=== PATIENT | male | born 1950 | race African-American/Black ===

== ENCOUNTER 2022-06-10 10:34 | Inpatient (IN) ==
[2022-06-10 15:01] LABS: Basophils % 0.2 % (0.0-0.8); Eosinophils # 0.1 10*3/uL (0.0-0.87); Eosinophils % 2.2 % (0.00-10.9); Hematocrit 22.1 VOL% (42.0-52.0); Hemoglobin 6.7 GM/DL (14.0-18.0); Immature Granulocytes % 0.5 %; Immature Granulocytes Absolute 0.03 #; Lymphocytes # 1.7 10*3/uL (1.4-4.0); Lymphocytes % 30.6 % (21.2-54.2); Mean Corpuscular HGB Conc 30.3 GM/DL (32-36); Mean Corpuscular Volume 97.4 FL (87-102); Mean Platelet Volume 9.5 FL (9.6-12.0); Monocytes # 0.7 10*3/uL (0.11-0.8); Monocytes % 13.4 % (1.7-12.7); Neutrophils % 53.1 % (38.7-73.9); Platelet Count 183 T/CUMM (130-400); Red Blood Count 2.27 MC/CUMM (3.8-5.5); Red Cell Distribution Width 16.9 % (9.3-17.3); White Blood Count 5.5 T/CUMM (4-12)
[2022-06-10 15:23] LABS: Alanine Aminotransferase 25 U/L (16-61); Albumin 3.1 G/DL (3.4-5.0); Alkaline Phosphatase 66 U/L (45-117); Aspartate Amino Transferase 32 U/L (0-37); Bilirubin,Total < 0.39 MG/DL (0.20-1.00); Blood Urea Nitrogen 14 MG/DL (7-18); Calcium 8.8 MG/DL (8.5-10.1); Carbon Dioxide 27 MMOL/L (21-32); Chloride 107 MMOL/L (98-107); Glucose 80 MG/DL (74-106); Osmolality,Calculated 272.8 MOS/KG (273-304); Potassium 3.7 MMOL/L (3.5-5.1); Sodium 137 MMOL/L (136-145); Total Protein 11.8 G/DL (6.4-8.2)
[2022-06-10] MEDS ORDERED: PANTOPRAZOLE INJ 80 MG in SODIUM CHLORIDE 0.9% 100 ML IV ONE ×2 (16:03→16:30)
[2022-06-10 16:18] LABS: INR 1.2; PT Patient Result 13.3 SECS (10.1-12.1); Partial Thromboplastin Time 25.6 SECS (23.7-32.9)
[2022-06-10] MEDS ORDERED: PANTOPRAZOLE INJ 200 MG in SODIUM CHLORIDE 0.9% 250 ML IV SCH (16:30)
[2022-06-10] MEDS ORDERED: SODIUM CHLORIDE 0.9% 1,000 ML IV PRN (16:49)
[2022-06-10] MEDS ORDERED: ONDANSETRON 4 MG/2 ML VIAL IV PRN (17:41)
[2022-06-10] MEDS ORDERED: ACETAMINOPHEN 325 MG TABLET PO PRN (17:41)
[2022-06-10] MEDS ORDERED: hydrALAZINE 20 MG/1 ML VIAL IV PRN (17:41)
[2022-06-10 19:41] LABS: % Iron Saturation 11.5 % (18-50); Ferritin 78.4 ng/mL (26-388)
[2022-06-10 19:51] LABS: Folate > 24.00 NG/ML (5.38-24.0); Vitamin B12 798 PG/ML (211-911)
[2022-06-10 20:56] LABS: Basophils % 0.2 % (0.0-0.8); Eosinophils # 0.2 10*3/uL (0.0-0.87); Eosinophils % 3.1 % (0.00-10.9); Hematocrit 19.2 VOL% (42.0-52.0); Immature Granulocytes % 0.7 %; Immature Granulocytes Absolute 0.04 #; Lymphocytes # 1.9 10*3/uL (1.4-4.0); Lymphocytes % 34.6 % (21.2-54.2); Mean Corpuscular HGB Conc 30.2 GM/DL (32-36); Mean Corpuscular Volume 98.5 FL (87-102); Mean Platelet Volume 9.5 FL (9.6-12.0); Monocytes # 0.7 10*3/uL (0.11-0.8); Monocytes % 12.2 % (1.7-12.7); Neutrophils % 49.2 % (38.7-73.9); Platelet Count 176 T/CUMM (130-400); Red Blood Count 1.95 MC/CUMM (3.8-5.5); Red Cell Distribution Width 16.9 % (9.3-17.3); White Blood Count 5.4 T/CUMM (4-12)
[2022-06-10 21:00] LABS: Hemoglobin 5.8 GM/DL (14.0-18.0)
[2022-06-10 21:43] LABS: Eosinophils 1 % (0-10); Hypochromia Slight; Lymphocytes 35 % (20-55); Platelet Estimate Normal; Total Cells Counted 100
[2022-06-10 22:01] LABS: Sedimentation Rate-Westergren 143 MM/HR (0-20)
[2022-06-10] MEDS: DOCUSATE SODIUM 100 MG CAPSULE PO SCH (22:31)
[2022-06-10] MEDS: PANTOPRAZOLE 40 MG VIAL IV SCH (22:31)
[2022-06-10] MEDS: TAMSULOSIN 0.4 MG CAPSULE PO SCH (22:32)
[2022-06-11 00:44] LABS: Bilirubin,Urine Negative (Negative); Blood, Urine Negative (Negative); Glucose,Urine (UA) Negative (Negative); Ketones,Urine Negative (Negative); Nitrite,Urine Negative (Negative); Protein,Urine Negative (Negative); Urine Appearance Clear (Clear); Urine Color Yellow (Yellow); Urine Urobilinogen 0.2 eU/dL (<2.0); Urine pH 6.5 (4.5-8.0)
[2022-06-11 00:46] LABS: Mucus,Urine Occasional /LPF (Occasional); RBC,Urine 2 /HPF (0-4)
[2022-06-11 06:20] LABS: Basophils % 0.3 % (0.0-0.8); Eosinophils # 0.2 10*3/uL (0.0-0.87); Hematocrit 23.4 VOL% (42.0-52.0); Hemoglobin 7.3 GM/DL (14.0-18.0); Immature Granulocytes % 0.5 %; Immature Granulocytes Absolute 0.02 #; Lymphocytes # 1.3 10*3/uL (1.4-4.0); Lymphocytes % 32.3 % (21.2-54.2); Mean Corpuscular HGB Conc 31.2 GM/DL (32-36); Mean Corpuscular Volume 96.7 FL (87-102); Mean Platelet Volume 9.6 FL (9.6-12.0); Monocytes # 0.5 10*3/uL (0.11-0.8); Monocytes % 13.5 % (1.7-12.7); Neutrophils % 49.4 % (38.7-73.9); Platelet Count 151 T/CUMM (130-400); Red Blood Count 2.42 MC/CUMM (3.8-5.5); Red Cell Distribution Width 16.2 % (9.3-17.3)
[2022-06-11 06:43] LABS: Calcium 8.4 MG/DL (8.5-10.1); Osmolality,Calculated 273.7 MOS/KG (273-304); Potassium 3.6 MMOL/L (3.5-5.1); Risk Ratio 1.63; Thyroid Stimulating Hormone 1.95 uIU/ml (0.358-3.74); VLDL Cholesterol 8.8 MG/DL
[2022-06-11] MEDS ORDERED: SODIUM CHLORIDE 0.9% 1,000 ML IV PRN (08:30)
[2022-06-11] MEDS: DOCUSATE SODIUM 100 MG CAPSULE PO SCH ×2 (09:22→21:03)
[2022-06-11] MEDS: PANTOPRAZOLE 40 MG VIAL IV SCH ×2 (09:22→21:03)
[2022-06-11] MEDS ORDERED: FERRIC GLUCONATE COMPLEX 125 MG in SODIUM CHLORIDE 0.9% 100 ML IV SCH (11:00)
[2022-06-11] MEDS ORDERED: VERAPAMIL SR 240 MG TABLET PO PRN (16:05)
[2022-06-11 16:26] LABS: Hematocrit 26.1 VOL% (42.0-52.0); Hemoglobin 8.4 GM/DL (14.0-18.0)
[2022-06-11] MEDS: tiZANidine 4 MG TABLET PO SCH (21:03)
[2022-06-11] MEDS: TAMSULOSIN 0.4 MG CAPSULE PO SCH (21:03)
[2022-06-12 05:51] LABS: Basophils % 0.2 % (0.0-0.8); Eosinophils # 0.2 10*3/uL (0.0-0.87); Eosinophils % 3.8 % (0.00-10.9); Hematocrit 25.6 VOL% (42.0-52.0); Immature Granulocytes % 0.5 %; Immature Granulocytes Absolute 0.02 #; Lymphocytes # 1.3 10*3/uL (1.4-4.0); Lymphocytes % 31.5 % (21.2-54.2); Mean Corpuscular HGB Conc 31.3 GM/DL (32-36); Mean Corpuscular Volume 94.5 FL (87-102); Mean Platelet Volume 10.1 FL (9.6-12.0); Monocytes # 0.6 10*3/uL (0.11-0.8); Platelet Count 169 T/CUMM (130-400); Red Blood Count 2.71 MC/CUMM (3.8-5.5); Red Cell Distribution Width 16.9 % (9.3-17.3); White Blood Count 4.3 T/CUMM (4-12)
[2022-06-12 06:06] LABS: Calcium 8.4 MG/DL (8.5-10.1); Osmolality,Calculated 273.7 MOS/KG (273-304); Potassium 3.5 MMOL/L (3.5-5.1)
[2022-06-12] MEDS ORDERED: MAGNESIUM SULF RIDER 4 GM/100 ML PREMIX IV ONE (08:30)
[2022-06-12] MEDS: MULTIVITAMIN (CENTRUM) TABLET PO SCH (09:24)
[2022-06-12] MEDS: tiZANidine 4 MG TABLET PO SCH ×2 (09:24→20:06)
[2022-06-12] MEDS: LOSARTAN 50 MG TABLET PO SCH (09:24)
[2022-06-12] MEDS: DOCUSATE SODIUM 100 MG CAPSULE PO SCH ×2 (09:24→20:06)
[2022-06-12] MEDS: PANTOPRAZOLE 40 MG VIAL IV SCH ×2 (09:25→20:05)
[2022-06-12 12:27] LABS: Hemoglobin 8.4 GM/DL (14.0-18.0)
[2022-06-12] MEDS ORDERED: VERAPAMIL SR 120 MG TABLET PO PRN (15:30)
[2022-06-12] MEDS: TAMSULOSIN 0.4 MG CAPSULE PO SCH (20:06)
[2022-06-12 20:32] LABS: Hematocrit 26.7 VOL% (42.0-52.0); Hemoglobin 8.3 GM/DL (14.0-18.0)
[2022-06-12] MEDS ORDERED: FERROUS SULFATE 325 MG TABLET PO SCH (21:00)
[2022-06-13 06:43] LABS: Basophils % 0.5 % (0.0-0.8); Eosinophils # 0.2 10*3/uL (0.0-0.87); Eosinophils % 4.7 % (0.00-10.9); Hematocrit 27.2 VOL% (42.0-52.0); Hemoglobin 8.5 GM/DL (14.0-18.0); Immature Granulocytes % 0.9 %; Immature Granulocytes Absolute 0.04 #; Lymphocytes # 1.5 10*3/uL (1.4-4.0); Lymphocytes % 34.3 % (21.2-54.2); Mean Corpuscular HGB Conc 31.3 GM/DL (32-36); Mean Corpuscular Volume 94.4 FL (87-102); Monocytes # 0.7 10*3/uL (0.11-0.8); Monocytes % 15.6 % (1.7-12.7); NRBC # 0.02 10*3/uL; Platelet Count 183 T/CUMM (130-400); Red Blood Count 2.88 MC/CUMM (3.8-5.5); Red Cell Distribution Width 16.5 % (9.3-17.3); White Blood Count 4.3 T/CUMM (4-12)
[2022-06-13 06:59] LABS: Calcium 8.3 MG/DL (8.5-10.1); Osmolality,Calculated 276.5 MOS/KG (273-304); Potassium 3.6 MMOL/L (3.5-5.1)
[2022-06-13 07:08] LABS: Eosinophils 3 % (0-10); Hypochromia 1+; Lymphocytes 27 % (20-55); Microcytosis 1+; Platelet Estimate Adequate; Total Cells Counted 100
[2022-06-13] MEDS ORDERED: FERROUS SULFATE 325 MG TABLET PO SCH (08:00)
[2022-06-13 09:24] LABS: Hemoglobin A1 (Alkaline) 98.3 % (96.5-98.5); Hemoglobin A2 (Alkaline) 1.7 % (1.5-3.5)
[2022-06-13] MEDS: DOCUSATE SODIUM 100 MG CAPSULE PO SCH ×2 (10:18→22:08)
[2022-06-13] MEDS: MULTIVITAMIN (CENTRUM) TABLET PO SCH (10:18)
[2022-06-13] MEDS: LOSARTAN 50 MG TABLET PO SCH (10:18)
[2022-06-13] MEDS: tiZANidine 4 MG TABLET PO SCH ×2 (10:19→22:08)
[2022-06-13] MEDS: LACTATED RINGERS 1,000 ML IV SCH (11:52)
[2022-06-13] MEDS ORDERED: BISACODYL 5 MG TABLET PO ONE (15:00)
[2022-06-13] MEDS ORDERED: POLYETHYLENE GLYCOL POWDER 255 GM BOTTLE PO ONE (18:00)
[2022-06-13 19:34] LABS: Immunoglobulin A < 31 MG/DL (70-400); Immunoglobulin G 6600 MG/DL (700-1600); Immunoglobulin M < 21 MG/DL (40-230); Total Protein 11.7 G/DL (6.4-8.2)
[2022-06-13] MEDS: PANTOPRAZOLE 40 MG TABLET PO SCH (22:08)
[2022-06-13] MEDS: TAMSULOSIN 0.4 MG CAPSULE PO SCH (22:08)
[2022-06-14] MEDS ORDERED: POLYETHYLENE GLYCOL POWDER 255 GM BOTTLE PO ONE (05:00)
[2022-06-14 05:33] LABS: Basophils % 0.2 % (0.0-0.8); Eosinophils # 0.1 10*3/uL (0.0-0.87); Eosinophils % 2.3 % (0.00-10.9); Hemoglobin 8.6 GM/DL (14.0-18.0); Immature Granulocytes % 1.1 %; Immature Granulocytes Absolute 0.05 #; Lymphocytes # 0.8 10*3/uL (1.4-4.0); Lymphocytes % 18.5 % (21.2-54.2); Mean Corpuscular HGB Conc 30.7 GM/DL (32-36); Mean Corpuscular Volume 96.2 FL (87-102); Mean Platelet Volume 9.6 FL (9.6-12.0); Monocytes # 0.6 10*3/uL (0.11-0.8); Monocytes % 14.6 % (1.7-12.7); Neutrophils % 63.3 % (38.7-73.9); Platelet Count 170 T/CUMM (130-400); Red Blood Count 2.91 MC/CUMM (3.8-5.5); Red Cell Distribution Width 16.4 % (9.3-17.3); White Blood Count 4.4 T/CUMM (4-12)
[2022-06-14 06:04] LABS: Alanine Aminotransferase 22 U/L (16-61); Albumin 2.7 G/DL (3.4-5.0); Alkaline Phosphatase 59 U/L (45-117); Aspartate Amino Transferase 29 U/L (0-37); Bilirubin,Total < 0.39 MG/DL (0.20-1.00); Blood Urea Nitrogen 10 MG/DL (7-18); Calcium 8.5 MG/DL (8.5-10.1); Carbon Dioxide 28 MMOL/L (21-32); Chloride 107 MMOL/L (98-107); Glucose 87 MG/DL (74-106); Osmolality,Calculated 272.7 MOS/KG (273-304); Potassium 3.6 MMOL/L (3.5-5.1); Sodium 138 MMOL/L (136-145); Total Protein 11.2 G/DL (6.4-8.2)
[2022-06-14 06:51] LABS: Immunoglobulin A (Chem) < 31 MG/DL (70-400); Immunoglobulin G (Chem) 6600 MG/DL (700-1600); Immunoglobulin M (Chem) < 21 MG/DL (40-230); Total Protein (Chem) 11.7 G/DL (6.4-8.3)
[2022-06-14 08:42] LABS: Albumin (SPE) 3.9 G/DL (3.2-5.3); Albumin (SPE) Rel % 33.5 %; Alpha 1 (SPE) 0.2 G/DL (0.1-0.4); Alpha 1 (SPE) Rel % 1.8 %; Alpha 2 (SPE) 0.8 G/DL (0.4-1.0); Beta (SPE) 0.6 G/DL (0.5-1.1); Beta (SPE) Rel % 5.4 %; Gamma (SPE) 6.1 G/DL (0.7-1.7)
[2022-06-14 08:50] LABS: Gamma (SPE) Rel % 52.3 %
[2022-06-14] MEDS: LOSARTAN 50 MG TABLET PO SCH (10:11)
[2022-06-14] MEDS: DOCUSATE SODIUM 100 MG CAPSULE PO SCH ×2 (10:11→21:23)
[2022-06-14] MEDS: MULTIVITAMIN (CENTRUM) TABLET PO SCH (10:11)
[2022-06-14] MEDS: PANTOPRAZOLE 40 MG TABLET PO SCH ×2 (10:11→21:23)
[2022-06-14] MEDS: tiZANidine 4 MG TABLET PO SCH ×2 (10:11→21:23)
[2022-06-14] MEDS: AMOXICILLIN/CLAV 875 MG TABLET PO SCH ×2 (11:00→17:13)
[2022-06-14] MEDS: LACTATED RINGERS 1,000 ML IV SCH (12:13)
[2022-06-14] MEDS: OXYMETAZOLINE 0.05% NASAL SPRAY 15 ML BOTTLE BOTH NARES SCH (21:23)
[2022-06-14] MEDS: TAMSULOSIN 0.4 MG CAPSULE PO SCH (21:23)
[2022-06-15 05:30] LABS: Basophils % 0.2 % (0.0-0.8); Eosinophils # 0.1 10*3/uL (0.0-0.87); Eosinophils % 1.1 % (0.00-10.9); Hematocrit 25.3 VOL% (42.0-52.0); Hemoglobin 7.9 GM/DL (14.0-18.0); Immature Granulocytes % 1.7 %; Immature Granulocytes Absolute 0.08 #; Lymphocytes # 1.2 10*3/uL (1.4-4.0); Lymphocytes % 25.9 % (21.2-54.2); Mean Corpuscular HGB Conc 31.2 GM/DL (32-36); Mean Corpuscular Volume 95.8 FL (87-102); Mean Platelet Volume 9.4 FL (9.6-12.0); Monocytes % 21.8 % (1.7-12.7); NRBC # 0.03 10*3/uL; Neutrophils % 49.3 % (38.7-73.9); Platelet Count 148 T/CUMM (130-400); Red Blood Count 2.64 MC/CUMM (3.8-5.5); White Blood Count 4.6 T/CUMM (4-12)
[2022-06-15 05:48] LABS: Calcium 8.2 MG/DL (8.5-10.1); Potassium 3.3 MMOL/L (3.5-5.1)
[2022-06-15 05:54] LABS: Alanine Aminotransferase 19 U/L (16-61); Albumin 2.5 G/DL (3.4-5.0); Alkaline Phosphatase 49 U/L (45-117); Aspartate Amino Transferase 31 U/L (0-37); Bilirubin,Total < 0.39 MG/DL (0.20-1.00); Blood Urea Nitrogen 15 MG/DL (7-18); Calcium 8.5 MG/DL (8.5-10.1); Carbon Dioxide 25 MMOL/L (21-32); Chloride 106 MMOL/L (98-107); Glucose 92 MG/DL (74-106); Osmolality,Calculated 273.8 MOS/KG (273-304); Potassium 3.2 MMOL/L (3.5-5.1); Sodium 137 MMOL/L (136-145); Total Protein 10.7 G/DL (6.4-8.2)
[2022-06-15 06:08] LABS: Eosinophils 1 % (0-10); Hypochromia 1+; Lymphocytes 27 % (20-55); Total Cells Counted 100
[2022-06-15 06:09] LABS: Anisocytosis 1+; Microcytosis 1+; Ovalocytes Slight
[2022-06-15] MEDS ORDERED: HEPARIN 5,000 UNIT/1 ML VIAL ONE (07:42)
[2022-06-15] MEDS: OXYMETAZOLINE 0.05% NASAL SPRAY 15 ML BOTTLE BOTH NARES SCH ×2 (08:00→23:55)
[2022-06-15] MEDS ORDERED: DEXTROSE 5% LACTATED RINGERS 1,000 ML IV SCH (09:00)
[2022-06-15] MEDS: LACTATED RINGERS 1,000 ML IV SCH ×2 (11:10→13:50)
[2022-06-15] MEDS: tiZANidine 4 MG TABLET PO SCH ×2 (11:35→21:22)
[2022-06-15] MEDS: AMOXICILLIN/CLAV 875 MG TABLET PO SCH ×3 (11:35→17:35)
[2022-06-15] MEDS: MULTIVITAMIN (CENTRUM) TABLET PO SCH (11:36)
[2022-06-15] MEDS: PANTOPRAZOLE 40 MG TABLET PO SCH ×2 (11:36→21:23)
[2022-06-15] MEDS: DOCUSATE SODIUM 100 MG CAPSULE PO SCH ×2 (11:37→21:23)
[2022-06-15] MEDS: LOSARTAN 50 MG TABLET PO SCH (11:37)
[2022-06-15] MEDS ORDERED: LIDOCAINE 2% 5 ML VIAL ONE (12:02)
[2022-06-15] MEDS ORDERED: propofoL 200 MG/20 ML VIAL IV ONE ×2 (12:02)
[2022-06-15] MEDS ORDERED: MAGNESIUM SULF RIDER 2 GM/50 ML PREMIX IV ONE (12:30)
[2022-06-15 12:41] LABS: Kappa Free Light Chain 36.9 mg/dL; Lambda Free Light Chain 0.32 mg/dL
[2022-06-15] MEDS ORDERED: VERAPAMIL SR 240 MG TABLET PO SCH (13:00)
[2022-06-15] MEDS: VERAPAMIL SR 120 MG TABLET PO SCH (13:48)
[2022-06-15] MEDS: TAMSULOSIN 0.4 MG CAPSULE PO SCH (21:23)
[2022-06-16 05:43] LABS: Basophils % 0.2 % (0.0-0.8); Eosinophils # 0.1 10*3/uL (0.0-0.87); Eosinophils % 2.5 % (0.00-10.9); Hematocrit 24.8 VOL% (42.0-52.0); Hemoglobin 7.6 GM/DL (14.0-18.0); Immature Granulocytes % 0.7 %; Immature Granulocytes Absolute 0.03 #; Lymphocytes # 1.4 10*3/uL (1.4-4.0); Lymphocytes % 34.4 % (21.2-54.2); Mean Corpuscular HGB Conc 30.6 GM/DL (32-36); Mean Corpuscular Volume 96.1 FL (87-102); Mean Platelet Volume 9.2 FL (9.6-12.0); Monocytes # 0.8 10*3/uL (0.11-0.8); Monocytes % 18.7 % (1.7-12.7); Neutrophils % 43.5 % (38.7-73.9); Platelet Count 134 T/CUMM (130-400); Red Blood Count 2.58 MC/CUMM (3.8-5.5); Red Cell Distribution Width 16.1 % (9.3-17.3)
[2022-06-16 06:01] LABS: Alanine Aminotransferase 19 U/L (16-61); Albumin 2.4 G/DL (3.4-5.0); Alkaline Phosphatase 55 U/L (45-117); Aspartate Amino Transferase 36 U/L (0-37); Bilirubin,Total < 0.39 MG/DL (0.20-1.00); Blood Urea Nitrogen 17 MG/DL (7-18); Calcium 8.7 MG/DL (8.5-10.1); Carbon Dioxide 27 MMOL/L (21-32); Chloride 106 MMOL/L (98-107); Glucose 90 MG/DL (74-106); Osmolality,Calculated 276.7 MOS/KG (273-304); Potassium 3.5 MMOL/L (3.5-5.1); Sodium 138 MMOL/L (136-145); Total Protein 10.1 G/DL (6.4-8.2)
[2022-06-16 06:13] LABS: Hypochromia 1+; Lymphocytes 27 % (20-55); Platelet Estimate Normal; Total Cells Counted 100
[2022-06-16 06:14] LABS: Microcytosis 1+
[2022-06-16 06:21] LABS: Calcium 8.2 MG/DL (8.5-10.1); Osmolality,Calculated 275.7 MOS/KG (273-304); Potassium 3.7 MMOL/L (3.5-5.1)
[2022-06-16] MEDS: VERAPAMIL SR 120 MG TABLET PO SCH (08:44)
[2022-06-16] MEDS: LOSARTAN 50 MG TABLET PO SCH (08:44)
[2022-06-16] MEDS: DOCUSATE SODIUM 100 MG CAPSULE PO SCH ×2 (08:44→20:28)
[2022-06-16] MEDS: MULTIVITAMIN (CENTRUM) TABLET PO SCH (08:44)
[2022-06-16] MEDS: PANTOPRAZOLE 40 MG TABLET PO SCH ×2 (08:44→20:28)
[2022-06-16] MEDS: AMOXICILLIN/CLAV 875 MG TABLET PO SCH ×2 (08:45→16:35)
[2022-06-16] MEDS: OXYMETAZOLINE 0.05% NASAL SPRAY 15 ML BOTTLE BOTH NARES SCH ×2 (08:46→20:29)
[2022-06-16] MEDS: tiZANidine 4 MG TABLET PO SCH ×2 (08:46→20:28)
[2022-06-16] MEDS ORDERED: SODIUM CHLORIDE 0.9% 1,000 ML IV PRN (09:06)
[2022-06-16] MEDS: LACTATED RINGERS 1,000 ML IV SCH ×2 (18:22→20:31)
[2022-06-16] MEDS: TAMSULOSIN 0.4 MG CAPSULE PO SCH (20:28)
[2022-06-17 05:35] LABS: Basophils % 0.3 % (0.0-0.8); Eosinophils # 0.1 10*3/uL (0.0-0.87); Eosinophils % 3.4 % (0.00-10.9); Hematocrit 28.4 VOL% (42.0-52.0); Hemoglobin 8.9 GM/DL (14.0-18.0); Immature Granulocytes % 0.6 %; Immature Granulocytes Absolute 0.02 #; Lymphocytes # 1.5 10*3/uL (1.4-4.0); Mean Corpuscular HGB Conc 31.3 GM/DL (32-36); Mean Corpuscular Volume 90.4 FL (87-102); Mean Platelet Volume 9.1 FL (9.6-12.0); Monocytes # 0.5 10*3/uL (0.11-0.8); Monocytes % 13.8 % (1.7-12.7); Neutrophils % 39.9 % (38.7-73.9); Platelet Count 126 T/CUMM (130-400); Red Blood Count 3.14 MC/CUMM (3.8-5.5); Red Cell Distribution Width 19.3 % (9.3-17.3); White Blood Count 3.6 T/CUMM (4-12)
[2022-06-17 05:51] LABS: Alanine Aminotransferase 19 U/L (16-61); Albumin 2.4 G/DL (3.4-5.0); Alkaline Phosphatase 49 U/L (45-117); Aspartate Amino Transferase 31 U/L (0-37); Bilirubin,Total < 0.39 MG/DL (0.20-1.00); Blood Urea Nitrogen 15 MG/DL (7-18); Calcium 8.1 MG/DL (8.5-10.1); Carbon Dioxide 27 MMOL/L (21-32); Chloride 107 MMOL/L (98-107); Glucose 83 MG/DL (74-106); Osmolality,Calculated 274.7 MOS/KG (273-304); Potassium 3.6 MMOL/L (3.5-5.1); Sodium 138 MMOL/L (136-145); Total Protein 10.4 G/DL (6.4-8.2)
[2022-06-17 06:07] LABS: Calcium 8.2 MG/DL (8.5-10.1); Osmolality,Calculated 274.7 MOS/KG (273-304)
[2022-06-17] MEDS: LACTATED RINGERS 1,000 ML IV SCH (06:45)
[2022-06-17] MEDS: MULTIVITAMIN (CENTRUM) TABLET PO SCH (09:30)
[2022-06-17] MEDS: AMOXICILLIN/CLAV 875 MG TABLET PO SCH (09:30)
[2022-06-17] MEDS: VERAPAMIL SR 120 MG TABLET PO SCH (09:30)
[2022-06-17] MEDS: LOSARTAN 50 MG TABLET PO SCH (09:30)
[2022-06-17] MEDS: DOCUSATE SODIUM 100 MG CAPSULE PO SCH (09:31)
[2022-06-17] MEDS: OXYMETAZOLINE 0.05% NASAL SPRAY 15 ML BOTTLE BOTH NARES SCH (09:31)
[2022-06-17] MEDS: tiZANidine 4 MG TABLET PO SCH (09:31)
[2022-06-17] MEDS: PANTOPRAZOLE 40 MG TABLET PO SCH (09:31)
[2022-06-17] MEDS ORDERED: methylPREDNISolone SOD SUC 125 MG/2 ML VIAL IV SCH (10:00)
[2022-06-17 10:59] VITALS: BP 122/78
== END 2022-06-17 15:00 | disposition home or self-care (01) | DRG 840 ==
LOC: N.ED 10:34 → SUATTDRO 17:41 → N.3E 17:41
PROVIDERS: ADMIT Family Medicine; ATTEND Internal Medicine